=== PATIENT | female | born 1945 | race African-American/Black ===

== ENCOUNTER 2021-11-13 08:38 | Outpatient (CLI) | payer OTHER | END 2021-11-13 08:39 | disposition home or self-care (01) | LOC: CSHCT 08:38 | PROVIDERS: ATTEND Neurological Surgery | DX: S06.5X9A Traumatic subdural hemorrhage with loss of consciousness of unspecified duration, initial encounter (principal) | CPT/HCPCS: 70450 ==

== ENCOUNTER 2021-12-05 12:27 | Outpatient (CLI) | payer MEDICARE | END 2021-12-05 12:28 | disposition home or self-care (01) | LOC: CSHCT 12:27 | PROVIDERS: ATTEND Neurological Surgery | DX: I62.00 Nontraumatic subdural hemorrhage, unspecified (principal); I61.9 Nontraumatic intracerebral hemorrhage, unspecified | CPT/HCPCS: 70450 ==